=== PATIENT | female | born 1985 | race American Indian/Alaskan Native ===

== ENCOUNTER 2017-02-04 12:37 | Outpatient (CLI) | payer MEDICAID ==
[2017-02-04 13:30] LABS: Hematocrit 34.4 % (30.3-42.9); Hemoglobin 11.1 gm/dl (10.1-14.3); Mean Corpuscular HGB Conc 32 % (30-34); Mean Corpuscular Volume 76 fl (79-97); Platelet Count 264 K/mm3 (140-440); Red Blood Count 4.55 M/mm3 (3.65-5.03); Red Cell Distribution Width 16.1 % (13.2-15.2)
[2017-02-04 13:33] LABS: Mean Corpuscular Hemoglobin 25 pg (28-32)
[2017-02-04 13:45] LABS: Bilirubin,Urine NEG (Negative); Blood,Urine NEG (Negative); Ketones,Urine NEG (Negative); Leukocyte Esterase,Urine NEG (Negative); Nitrite,Urine NEG (Negative); Protein,Urine <15 mg/dL mg/dL (Negative); Urobilinogen,Urine < 2.0 mg/dL (<2.0)
[2017-02-04 13:52] LABS: Alanine Aminotransferase 27 units/L (7-56); Lactate Dehydrogenase 423 units/L (91-180)
[2017-02-04 14:06] VITALS: BP 132/70
== END 2017-02-04 14:30 | disposition home or self-care (01) ==
LOC: TRG 12:37
PROVIDERS: ATTEND Obstetrics & Gynecology
DX: O47.03 False labor before 37 completed weeks of gestation, third trimester (principal); Z3A.35 35 weeks gestation of pregnancy
CPT/HCPCS: 36415; 59025; 81001; 82565; 83615; 84450; 84460; 84550; 85027

== ENCOUNTER 2017-02-18 09:26 | Inpatient (IN) | payer MEDICAID ==
[2017-02-18] MEDS ORDERED: REGLAN IV ONE (10:21)
[2017-02-18] MEDS ORDERED: PEPCID IV ONE ×2 (10:21→16:11)
[2017-02-18] MEDS ORDERED: BICITRA PO ONE ×2 (10:21→15:00)
--- NOTE | 2017-02-18 10:29 | History and Physical Report ---
<KARIRAYMUNDO Elba - Last Filed: 02/18/17 12:33> History of Present Illness Date of examination: 02/18/17 Date of admission: 02/18/17 09:26 Chief complaint: patient sent to [facility] for repeat c/s today from [facility] d/t uncontrolled GDM, fasting blood sugars high 200's consistently. Patient has been noncompliant with care during . History of present illness: Menstrual History Regularity: regular Menses every: 28 days Duration: 5 LMP reliability: month known LMP character: normal test type: urine test Date: 08/24/2016 BC at conception: barrier Planned ? yes EDC 03/09/17 Past History : 7 Term Births: 5 Living Children: 5 Para: 5 Prev : 4 Elect. Ab: 1 # 1 Delivery date: 2001 Delivery type: EAB # 2 Delivery date: 2005 Weeks Gestation: FT labor: no Delivery type: Delivery location: [facility] Infant Sex: Male weight: 8-3 # 3 Delivery date: 2006 Weeks Gestation: FT labor: no Delivery type: Anesthesia type: general Delivery location: [facility] Infant Sex: Female weight: 9-2 Comments: CPD; pt had an epidural but panicked and was given general # 4 Delivery date: 06/15/2011 Weeks Gestation: 39+2 Delivery type: Anesthesia type: spinal Delivery location: [facility] Sex: female weight: 6.81 Comments: previous c/s # 5 Delivery date: 2012 Weeks Gestation: term Delivery type: Anesthesia type: epidural Delivery location: [facility] [place] Sex: Female weight: 6 Comments: denies comp # 6 Delivery date: 2013 Weeks Gestation: term Delivery type: Anesthesia type: epidural Delivery location: [facility] Infant Sex: Female weight: 8 Risk Factors: Smoked Tobacco Use: Never smoker Smokeless Tobacco Use: Never Passive smoke exposure: no Drug use: no HIV high-risk behavior: low risk Caffeine use: 1 drinks per day Alcohol use: no Seatbelt use: preg-patent counsel % Dietary Counseling: pn yes Past Medical History: Reviewed history from 11/17/2010 and no changes required: Negative Past Medical History sti hx--CT, 2006 abd pap hx--2006, lgsil Past Surgical History: X4 Past Medical History 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 of genital herpes: no Partner hx. of genital herpes: no Rash, Viral, or Febrile illness since last LMP? no Varicella/Chicken Pox Status: Previous Disease TB Risk: no Genetic History Congenital Heart Defect: Mom: no Dad: no Serene Disease: Mom: no Dad: no Thalassemia Mom: no Dad: no Neural Tube Defect Mom: no Dad: no Down's Syndrome Mom: no Dad: no Diomedes-Sachs Mom: no Dad: no Sickle Cell Disease/Trait Mom: no Dad: no Hemophilia Mom: no Dad: no Muscular Dystrophy Mom: no Dad: no Cystic Fibrosis Mom: no Dad: no Gabriella Chorea Mom: no Dad: no Mental Retardation Mom: no Dad: no Fragile X Mom: no Dad: no Other Genetic/Chromosomal Disorder Mom: no Dad: no Child w/other defect Mom: no Dad: no Enviromental Exposures Xray Exposure: no Medication, drug, or alcohol use since LMP: no Chemical/Other Exposure: no Exposure to Cat Liter: no Hx of Parvovirus (Fifth Disease): no Occupational Exposure to Children: none Current Allergies (reviewed today): No known allergies Past History Past Medical History: other (see HPI) Past Surgical History: section (x4), other (see HPI) - Obstetrical History Expected Date of Delivery: 03/09/17 Actual Gestation: 37 Week(s) 2 Day(s) : 7 Para: 5 Hx # Term Pregnancies: 5 Number of Pregnancies: 0 Spontaneous Abortions: 0 Induced : 1 Number of Living Children: 5 Medications and Allergies Allergies Allergy/AdvReac Type Severity Reaction Status Date / Time No Known Allergies Allergy Verified 07/13/13 10:50 Home Medications Medication Instructions Recorded Confirmed Last Taken Type No Known Home Medications [No 02/18/17 02/18/17 Unknown History Reported Home Medications] Active Meds: Active Medications Citric Acid/Sodium Citrate (Bicitra) 30 ml PO ONCE ONE Stop: 02/18/17 10:22 Famotidine (Pepcid) 20 mg IV ONCE ONE Stop: 02/18/17 10:22 Cefazolin Sodium (Ancef/Sterile Water 2 Gm/20 Ml) 2 gm in 20 mls @ 80 mls/hr IV PREOP NR PRN Reason: Protocol Lactated Ringer's (Lactated Ringers) 1,000 mls @ 2,250 mls/hr IV PREOP WILLOW Stop: 02/19/17 11:27 Oxytocin/Sodium Chloride (Pitocin/Ns 20 Unit/1000ml Drip) 20 units in 1,000 mls @ 0 mls/hr IV TITR WILLOW PRN Reason: As Directed Metoclopramide HCl (Reglan) 10 mg IV ONCE ONE Stop: 02/18/17 10:22 Review of Systems All systems: negative - Physical Exam Breasts: Positive: normal Cardiovascular: Regular rate Lungs: Positive: Clear to auscultation, Normal air movement Abdomen: Positive: normal appearance, soft, normal bowel sounds Genitourinary (Female): Positive: normal external genitalia Vulva: both: normal Vagina: Positive: normal moisture Uterus: Positive: normal size, normal contour Anus/Rectum: Positive: normal perianal skin Extremities: Positive: normal Deep Tendon Reflex Grade: Normal +2 - Obstetrical FHR: category 1 Uterine Contraction Monitor Mode: External Uterine Contraction Pattern: Absent Uterine Tone Measurement Phase: Resting Results Result Diagrams: 02/18/17 11:32 All other labs normal. Assessment and Plan 32y/o @ 37+2 weeks, Seen by Dr. Zhu at [facility]'s office this morning. Fast blood sugar noted to be in the high 200's. Dr. Zhu recommends delivery today. Prev c/s x4, desires Sterilization. Admission pre-op orders in EMR. - Patient Problems (1) Noncompliance with treatment plan Current Visit: Yes Status: Acute (2) Previous section Current Visit: Yes Status: Acute (3) Gestational diabetes mellitus (GDM) Current Visit: Yes Status: Acute QualifierTitle: Gestational diabetes mellitus control: unspecified Trimester: third trimester Qualified Code(s): O24.419 - Gestational diabetes mellitus in , unspecified control (4) 37 weeks gestation of Current Visit: Yes Status: Acute (5) Polyhydramnios, third trimester, fetus 1 Current Visit: Yes Status: Acute (6) Sterilization Current Visit: Yes Status: Acute Plan to address problem: previously signed consent on chart, patient states she desires tubal ligation during c/s today (7) GBS (group B Streptococcus carrier), +RV culture, currently Current Visit: Yes Status: Acute <LIZANDRO CUNHA - Last Filed: 02/18/17 17:07> History of Present Illness Date of admission: 02/18/17 09:26 Medications and Allergies Active Meds: Active Medications Cefazolin Sodium (Ancef/Sterile Water 2 Gm/20 Ml) 2 gm in 20 mls @ 80 mls/hr IV PREOP NR PRN Reason: Protocol Stop: 02/18/17 23:59 Lactated Ringer's (Lactated Ringers) 1,000 mls @ 2,250 mls/hr IV PREOP WILLOW Stop: 02/19/17 11:27 Last Admin: 02/18/17 16:38 Dose: 2,250 mls/hr Oxytocin/Sodium Chloride (Pitocin/Ns 20 Unit/1000ml Drip) 20 units in 1,000 mls @ 0 mls/hr IV TITR WILLOW PRN Reason: As Directed Influenza Virus Vaccine Quadrival (Fluarix Quad [id number](36 Mos+) 0.5 ml IM .ONCE ONE Stop: 02/19/17 12:01 Results Result Diagrams: 02/18/17 11:32 Abnormal lab results 02/18/17 Range/Units 11:32 WBC 11.7 H (4.5-11.0) K/mm3 MCV 76 L (79-97) fl MCH 25 L (28-32) pg RDW 16.1 H (13.2-15.2) % [place] % (Auto) 8.2 H (0.0-7.3) % [place] # 1.0 H (0.0-0.8) K/mm3 Seg Neutrophils % 72.9 H (40.0-70.0) % Seg Neutrophils # 8.5 H (1.8-7.7) K/mm3 All other labs normal.
[2017-02-18] MEDS ORDERED: ANCEF/STERILE WATER 2 GM/20 ML 2 GM/20 ML SYRINGE IV NR (11:00)
[2017-02-18] MEDS ORDERED: PITOCin/NS 20 UNIT/1000ML DRIP 20 UNITS/1,000 ML BAG IV SCH ×2 (11:00→22:48)
[2017-02-18 11:53] LABS: Basophils % (Auto) 0.4 % (0.0-1.8); Eosinophils % (Auto) 1.2 % (0.0-4.3); Hematocrit 34.1 % (30.3-42.9); Hemoglobin 11.1 gm/dl (10.1-14.3); Mean Corpuscular HGB Conc 33 % (30-34); Mean Corpuscular Volume 76 fl (79-97); Platelet Count 225 K/mm3 (140-440); Red Blood Count 4.49 M/mm3 (3.65-5.03); Red Cell Distribution Width 16.1 % (13.2-15.2); White Blood Count 11.7 K/mm3 (4.5-11.0)
[2017-02-18 12:04] LABS: Mean Corpuscular Hemoglobin 25 pg (28-32)
[2017-02-18] MEDS: LACTATED RINGERS 1,000 ML IV SCH ×3 (16:10→19:30)
[2017-02-18] MEDS ORDERED: REGLAN ONE (16:11)
[2017-02-18] MEDS ORDERED: MORPHINE ONE (17:43)
[2017-02-18] MEDS ORDERED: NACL 0.9% IR ONE (18:07)
[2017-02-18] MEDS ORDERED: WATER FOR IRRIG STERILE IR ONE (18:07)
[2017-02-18] MEDS ORDERED: ZOFRAN ONE (18:17)
[2017-02-18] MEDS ORDERED: NEO SYNEPHRINE/NS Syringe(OR USE) IV ONE (18:17)
[2017-02-18] MEDS ORDERED: VERSED ONE (18:26)
--- NOTE | 2017-02-18 18:52 | Operative Report ---
Operative Report Operative Report: Date of procedure: 02/18/2017 Pre-operative diagnosis: Intrauterine at 37 weeks with previous section, uncontrolled diabetes, noncompliant with visits and desires permanent sterilization Post-operative diagnosis: Same Procedure name(s): Repeat low transverse section with bilateral tubal ligation modified Bashir type Surgeon: Tank Campbell MD Pulp Cooker: VITALIY Anesthesia: Spinal EBL: 1000 mL Complications: None Findings: Patient with adhesions between the anterior uterine wall and rectus muscles had normal-appearing uterus and normal-appearing tubes and ovaries bilaterally. Female weighing 6 lbs. 14 oz. Apgars 8 at 1 minute and 8 at 5 minutes Specimen(s): Portion of the right and left fallopian tubes Procedure: The patient was brought to the operating room. A spinal was placed without any complications. She was then placed in left lateral tilt. Prepped and draped in the usual sterile manner. After testing for adequate anesthesia level, a Pfannenstiel incision was made through her previous scar. This incision was taken down to the fascia. The fascia was then nicked in the midline. This incision was extended out laterally with Ramírez scissors. The fascia was then sharply and bluntly from the underlying rectus muscles. The rectus muscles were bluntly and sharply . The peritoneum was then entered with the paper cone machine operator's fingers. The adhesions were taken down both sharply and bluntly. This incision was spread vertically with care not to damage the bladder below. The bladder flap was then formed sharply and bluntly with Metzenbaum scissors. The Nikolai self-retaining tractor was then placed without any difficulty. A transverse incision was made in lower uterine segment. This incision was extended laterally with the operators fingers. The amniotic sac was then entered bluntly with the paper cone machine operator's fingers. The was delivered from the vertex position. Bulb suction on the mother's abdomen. Cord was double clamped and cut. The was then passed to the nursery personnel who were in attendance. The above scores were given by the nursery personnel. The placenta was then bluntly removed. The uterus was then externalized and wiped clean the remaining products. The uterine incision was closed in layers. The first incision was closed in a locking manner using 0 Vicryl. This was followed by imbricating stitch also with 0 Vicryl. Attention was then switched to the patient's fallopian tubes. Each fallopian tube was identified by its fimbriated end. A portion of each tube was grabbed with the Gulshan clamp approximately 2-3 cm from the cornua. Each loop was double ligated with 0 chromic suture. The loop were cut with Metzenbaum scissors. Each stump was found to be hemostatic and cauterized with the Bovie. Attention was then switched back to the uterine closure. This closure was hemostatic. The bladder flap was copiously irrigated and found to be hemostatic. The pelvis was copiously irrigated and found to be hemostatic. The uterus was then placed back to the patient's abdomen. The tubal stumps were inspected and found to be hemostatic The retractors were removed. The rectus muscles were inspected and found to be hemostatic. The fascia was then closed in a running manner using 0 Vicryl. This incision was hemostatic irrigation Bovie. The skin was reapproximated with 4-0 Vicryl subcuticularly. The patient tolerated procedure well. Her urine was clear. The was admitted to the [facility]. The patient was accompanied to recovery room in good condition. Instrument count correct 3.
[2017-02-18] MEDS ORDERED: BENADRYL IV PRN (19:10)
[2017-02-18] MEDS ORDERED: NARCAN 0.4 MG/1 ML IV PRN ×2 (19:10→22:48)
--- NOTE | 2017-02-18 19:10 | Post Anesthesia Evaluation ---
- Post Anesthesia Evaluation Patient Participated: Yes Airway Patent: Yes Stable Respiratory Function: Yes Nausea/Vomiting: No Temp > 96.8F: Yes Pain Manageable: Yes Adequeate Hydration: Yes Anesthesia Complications: No Block Receding Appropriately: Yes Patient on Ventilator: No
--- NOTE | 2017-02-18 19:10 | Anesthesia Consultation ---
Anesthesia Consult and Med Hx Date of service: 02/18/17 - Airway Anesthetic Teeth Evaluation: Good ROM Head & Neck: Adequate Mental/Hyoid Distance: Adequate Mallampati Class: Class II Intubation Access Assessment: Probably Good - Pulmonary Exam CTA: Yes - Cardiac Exam Cardiac Exam: RRR - Pre-Operative Health Status ASA Pre-Surgery Classification: ASA3 Proposed Anesthetic Plan: Epidural, Spinal - Pulmonary Hx Asthma: No COPD: No Hx Pneumonia: No - Cardiovascular System Hx Hypertension: No - Central Nervous System Hx Seizures: No Hx Psychiatric Problems: No - Endocrine Hx Renal Disease: No Hx End Stage Renal Disease: No Hx Non-Insulin Dependent Diabetes: Yes (gestational) Hx Hypothyroidism: No Hx Hyperthyroidism: No - Hematic Hx Anemia: No Hx Sickle Cell Disease: No - Other Systems Hx Alcohol Use: No Hx Obesity: Yes (morbid, BMI > 40)
--- NOTE | 2017-02-18 19:10 | Anesthesia Day of Surgery ---
Anesthesia Day of Surgery - Day of Surgery Patient Examined: Yes Patient H&P Reviewed: Yes Patient is NPO: Yes
[2017-02-18] MEDS ORDERED: MORPHINE IV PRN ×2 (19:11)
[2017-02-18] MEDS ORDERED: TORADOL IV PRN ×2 (19:11→22:48)
[2017-02-18] MEDS ORDERED: SODIUM CHLORIDE FLUSH SYRINGE 10 ML IV NR (20:00)
[2017-02-18] MEDS: ZOFRAN IV PRN (20:02)
[2017-02-18] MEDS ORDERED: NACL 0.9% 1000 ML 1,000 ML IV ONE (22:48)
[2017-02-18] MEDS ORDERED: MILK OF MAGNESIA PO PRN (22:48)
[2017-02-18] MEDS ORDERED: ANCEF/NS 1 GM/50 ML 1 GM/50 ML BAG IV SCH (22:48)
[2017-02-18] MEDS ORDERED: SODIUM CHLORIDE FLUSH SYRINGE 10 ML IV PRN (22:48)
[2017-02-18] MEDS ORDERED: NORCO 5/325 PO PRN (22:48)
[2017-02-18] MEDS ORDERED: LANSINOH TP PRN (22:48)
[2017-02-18] MEDS ORDERED: TUCKS PAD TP PRN (22:48)
[2017-02-19] MEDS: ceFAZolin 1 GM in NACL 0.9% 20 ML IV SCH ×2 (01:13→18:39)
[2017-02-19] MEDS ORDERED: LACTATED RINGERS 1,000 ML IV SCH (03:00)
[2017-02-19] MEDS: ZOFRAN IV PRN (03:46)
[2017-02-19 08:14] LABS: Hematocrit 30.3 % (30.3-42.9)
[2017-02-19] MEDS ORDERED: ceFAZolin 1 GM in NACL 0.9% 20 ML IV ONE (09:45)
--- NOTE | 2017-02-19 09:52 | Query- General ---
Jorge Miguel esme Date: 02/19/17 Help Desk Analyst/CDS:____Rohit Phone#:__[phone] Exercise your independent professional judgment when responding to this query. Questions asked do not imply a particular answer is desired or expected. We greatly appreciate your clarification on this issue. Clinical Documentation States: 32 year old female was admitted on 02/18/17 The H&P (Dr. Campbell) states " patient sent to [facility] for repeat c/s today from [facility] d/t uncontrolled GDM, fasting blood sugars high 200's consistently. Patient has been noncompliant with care during . " The Surgery operative note states " Actual procedures p repeat with BTL " Clinical Findings Show (include reference to source document): BMI: 43 Given the above clinical scenario can you please provide an appropriate diagnosis based on your knowledge of the patient: PHYSICIAN RESPONSE: [ ] Obesity [ x ] Morbid obesity [ ] Other (Please specify) [ ] Clinically undeterminable Present on Admission: [ x] Yes (Y) [ ] Clinically undeterminable (W) [ ]No(N) Please also document response in your Progress Notes and/or Discharge Summary and indicate if the condition was present on admission. MTDD
[2017-02-19] MEDS ORDERED: ANCEF/NS 1 GM/50 ML 1 GM/50 ML BAG IV ONE (10:00)
--- NOTE | 2017-02-19 11:07 | Progress Note ---
Assessment and Plan - Patient Problems (1) delivery delivered Current Visit: Yes Status: Acute Plan to address problem: Postoperative day #1. Patient without fever. We'll ambulate in halls. We will continue routine postoperative care. Patient's postoperative hematocrit 30 %. We'll continue routine post care (2) Gestational diabetes mellitus (GDM) Current Visit: Yes Status: Acute Qualifiers: Gestational diabetes mellitus control: unspecified Trimester: third trimester Qualified Code(s): O24.419 - Gestational diabetes mellitus in , unspecified control Plan to address problem: Patient down with continued elevated blood sugars most likely consistent with gestational diabetes will obtain consult (3) Diabetes Current Visit: No Status: Acute Qualifiers: Diabetes mellitus type: other specified (including CARRIE) Plan to address problem: Patient was noncompliant with her glucose screening during the did have a hemoglobin globe an A1c of 7.1 will obtain a hospitalist consult treatment of her diabetes and arrangement for after discharge care Subjective - Subjective Date of service: 02/19/17 Patient reports: appetite normal, voiding normally, pain well controlled, flatus , ambulating normally Mcdonald: doing well Objective - Vital Signs Latest vital signs: Vital Signs Temp Pulse Resp BP Pulse Ox 02/19/17 04:55 98.3 F 20 111/58 02/18/17 23:43 97.8 F 20 127/68 02/18/17 23:07 18 02/18/17 22:37 18 02/18/17 21:08 98.4 F 20 121/64 02/18/17 20:10 82 13 118/67 02/18/17 20:00 81 19 121/68 100 02/18/17 19:51 117 H 22 145/67 100 02/18/17 19:40 81 23 117/70 99 02/18/17 19:30 77 24 124/77 100 02/18/17 19:20 89 20 123/94 99 02/18/17 19:10 76 16 120/72 100 02/18/17 19:01 81 22 100 02/18/17 19:00 97.7 F Intake and Output 02/18/17 02/19/17 02/19/17 22:59 06:59 14:59 Intake Total 2400 270 Output Total 150 300 100 Balance 2250 -30 -100 Intake: IV 2400 Lactated Ringers 1,000 ml 2000 @ 2250 mls/hr IV PREOP [facility] Rx#:[id number] Oral 150 Intake, Free Water 120 Output: Urine 150 300 100 Indwelling Catheter 300 100 Other: Total, Intake Amount 50 Total, Output Amount 300 100 Estimated Blood Loss 1,000 - Exam Breasts: Present: deferred Cardiovascular: Present: Regular rate Lungs: Present: Normal air movement Abdomen: Present: normal appearance, tenderness (appropriately), normal bowel sounds Uterus: Present: firm, fundal height at umbilicus Extremities: Present: edema Incision: Present: dry, dressed - Labs Labs: Abnormal lab results 02/18/17 02/18/17 02/18/17 Range/Units 11:32 17:22 23:37 WBC 11.7 H (4.5-11.0) K/mm3 Hgb (10.1-14.3) gm/dl MCV 76 L (79-97) fl MCH 25 L (28-32) pg RDW 16.1 H (13.2-15.2) % Gage % (Auto) 8.2 H (0.0-7.3) % Gage # 1.0 H (0.0-0.8) K/mm3 Seg Neutrophils % 72.9 H (40.0-70.0) % Seg Neutrophils # 8.5 H (1.8-7.7) K/mm3 POC Glucose 148 H 217 H (70-105) 02/19/17 02/19/17 Range/Units 07:29 08:21 WBC (4.5-11.0) K/mm3 Hgb 10.0 L (10.1-14.3) gm/dl MCV (79-97) fl MCH (28-32) pg RDW (13.2-15.2) % Gage % (Auto) (0.0-7.3) % Gage # (0.0-0.8) K/mm3 Seg Neutrophils % (40.0-70.0) % Seg Neutrophils # (1.8-7.7) K/mm3 POC Glucose 195 H (70-105)
--- NOTE | 2017-02-19 11:58 | History and Physical Report ---
History of Present Illness Date of admission: 02/18/17 09:26 Chief complaint: My blood sugar is high History of present illness: 32 Yo Female with Morbid Obesity and Gestational diabetes. Consult placed for elevated random blood glucose. Pt seen and evaluated. Pt denies fever, chills, CP, Palpitations, Flank pain, polydipsia, polyuria, polyphagia, unintentional weight loss, nausea or vomiting. Pt resting comfortable, and states that she plans to breastfeed her child. Past History Past Medical History: diabetes, other (morbid obesity) Past Surgical History: Social history: single. denies: smoking, alcohol abuse, prescription drug abuse Family history: diabetes, hypertension Medications and Allergies Allergies Allergy/AdvReac Type Severity Reaction Status Date / Time No Known Allergies Allergy Verified 07/13/13 10:50 Home Medications Medication Instructions Recorded Confirmed Last Taken Type Ferrous Sulfate [Feosol 325 MG tab] 325 mg PO BID #60 tablet 02/18/17 Unknown Rx Ibuprofen [Motrin 800 MG tab] 800 mg PO Q6H PRN #30 tablet 02/18/17 Unknown Rx oxyCODONE /ACETAMINOPHEN [Percocet 1 - 2 tab PO Q4H PRN #30 tablet 02/18/17 Unknown Rx 5/325 mg] Active Meds: Active Medications Acetaminophen/Hydrocodone Bitart (Jermyn 5/325) 1 each PO Q4H PRN PRN Reason: Pain, Moderate (4-6) Diphenhydramine HCl (Benadryl) 25 mg IV Q6H PRN PRN Reason: Itching Ferrous Sulfate (Feosol) 325 mg PO QDAY WILLOW Oxytocin/Sodium Chloride (Pitocin/Ns 20 Unit/1000ml Drip) 20 units in 1,000 mls @ 250 mls/hr IV DIRECT WILLOW Lactated Ringer's (Lactated Ringers) 1,000 mls @ 125 mls/hr IV DIRECT WILLOW Last Admin: 02/19/17 05:36 Dose: 125 mls/hr Ibuprofen (Motrin) 800 mg PO Q6H PRN PRN Reason: Pain, Mild (1-3) Insulin Human Regular (Novolin R) 0 units SUB-Q ACHS WILLOW PRN Reason: Protocol Last Admin: 02/19/17 00:03 Dose: 4 units Ketorolac Tromethamine (Toradol) 30 mg IV Q6H PRN PRN Reason: Pain, Moderate (4-6) Stop: 02/23/17 19:10 Last Admin: 02/18/17 19:29 Dose: 30 mg Magnesium Hydroxide (Milk Of Magnesia) 30 ml PO QHS PRN PRN Reason: Constip Unrelieved By Senna Morphine Sulfate (Morphine) 2 mg IV Q4H PRN PRN Reason: Pain, Moderate (4-6) Last Admin: 02/18/17 22:37 Dose: 2 mg Morphine Sulfate (Morphine) 4 mg IV Q4H PRN PRN Reason: Pain , Severe (7-10) Last Admin: 02/18/17 19:29 Dose: 4 mg Multi-Ingredient Ointment (Lansinoh) 1 applic TP PRN PRN PRN Reason: dryness/cracking Multivitamins/Iron/Calcium ( Vitamin) 1 each PO QDAY WILLOW Naloxone HCl (Narcan 0.4 Mg/1 Ml) 0.2 mg IV Q2MIN PRN PRN Reason: Res Rate </= 8 or 02 SAT < 92% Naloxone HCl (Narcan 0.4 Mg/1 Ml) 0.1 mg IV Q2MIN PRN PRN Reason: Res Rate </= 8 or 02 SAT < 92% Ondansetron HCl (Zofran) 4 mg IV Q8H PRN PRN Reason: Nausea And Vomiting Last Admin: 02/19/17 03:46 Dose: 4 mg Sodium Chloride (Sodium Chloride Flush Syringe 10 Ml) 10 ml IV PRN PRN PRN Reason: LINE FLUSH Witch Selina/Glycerin (Tucks Pad) 1 each TP PRN PRN PRN Reason: Hemorrhoids/cleansing/soothing Review of Systems Constitutional: no weight loss, no weight gain, no fever, no chills Ears, nose, mouth and throat: no ear pain, no ear discharge, no tinnitis, no decreased hearing, no nose pain Breasts: no change in shape, no swelling, no mass Cardiovascular: no chest pain, no orthopnea, no palpitations, no rapid/ irregular heart beat, no edema Respiratory: no cough, no cough with sputum, no excessive sputum, no hemoptysis , no shortness of breath Gastrointestinal: no abdominal pain, no nausea, no vomiting, no diarrhea, no constipation Genitourinary Female: no dysmenorrhea, no pelvic pain, no flank pain, no menorrhagia, no dysuria, no urinary frequency, no urgency Rectal: no pain, no incontinence, no bleeding Musculoskeletal: no neck stiffness, no neck pain, no shooting arm pain, no arm numbness/tingling, no low back pain Integumentary: no rash, no pruritis, no redness, no sores, no wounds Neurological: no head injury, no transient paralysis, no paralysis, no weakness , no parathesias Psychiatric: no anxiety, no memory loss, no change in sleep habits, no sleep disturbances, no insomnia, no hypersomnia Endocrine: no cold intolerance, no heat intolerance, no polyphagia, no excessive thirst, no polydipsia, no polyuria, no nocturia, no excessive sweating Hematologic/Lymphatic: no easy bruising, no easy bleeding Allergic/Immunologic: no urticaria, no allergic rhinitis, no wheezing Exam - Constitutional Vitals: Temp Pulse Resp BP Pulse Ox 98.3 F 82 18 93/51 100 02/19/17 04:55 02/18/17 20:10 02/19/17 09:50 02/19/17 09:50 02/18/17 20:00 General appearance: Present: obese - EENT Eyes: Present: PERRL ENT: hearing intact, clear oral mucosa - Neck Neck: Present: supple, normal ROM - Respiratory Respiratory effort: normal Respiratory: bilateral: CTA - Cardiovascular Heart Sounds: Present: S1 & S2. Absent: rub, click - Extremities Extremities: pulses symmetrical, No edema Peripheral Pulses: within normal limits - Abdominal General gastrointestinal: Present: soft, non-tender, non-distended, normal bowel sounds Female genitourinary: Present: normal - Integumentary Integumentary: Present: clear, warm, dry - Musculoskeletal Musculoskeletal: gait normal, strength equal bilaterally - Psychiatric Psychiatric: appropriate mood/affect, intact judgment & insight - Neurologic Neurologic: CNII-XII intact, moves all extremities Results - Labs CBC & Chem 7: 02/19/17 07:29 Labs: Abnormal lab results 02/18/17 02/18/17 02/18/17 Range/Units 11:32 17:22 23:37 WBC 11.7 H (4.5-11.0) K/mm3 Hgb (10.1-14.3) gm/dl MCV 76 L (79-97) fl MCH 25 L (28-32) pg RDW 16.1 H (13.2-15.2) % POC Glucose 148 H 217 H (70-105) 02/19/17 02/19/17 Range/Units 07:29 08:21 WBC (4.5-11.0) K/mm3 Hgb 10.0 L (10.1-14.3) gm/dl MCV (79-97) fl MCH (28-32) pg RDW (13.2-15.2) % POC Glucose 195 H (70-105) Assessment and Plan - Patient Problems (1) Gestational diabetes Current Visit: Yes Status: Acute Plan to address problem: Patient is borderline, but has random serum glucose above 200. Pt counseled regarding Low carbohydrate diet and carbohydrate counting, increased physical activity, continue with because it will lower glucose level, F/U with PCP with fasting serum glucose. (2) Morbid obesity Current Visit: Yes Status: Acute Plan to address problem: Pt counseled regarding increased physical activity, balanced low carbohydrate diet,
[2017-02-19] MEDS ORDERED: Fluarix Quad 2017-2018(36 MOS+ IM ONE (12:00)
[2017-02-19] MEDS: MOTRIN PO PRN ×2 (12:43→20:27)
[2017-02-19] MEDS: PRENATAL VITAMIN PO SCH (12:48)
[2017-02-19] MEDS: FEOSOL PO SCH (12:48)
--- NOTE | 2017-02-20 08:18 | Discharge Summary ---
Providers - Providers Date of Admission: 02/18/17 09:26 Date of discharge: 02/20/17 Attending physician: LIZANDRO CUNHA 02/18/17 22:48 Consult to [employer] [CONS] Routine Reason For Exam: 02/19/17 10:58 Consult to Physician [CONS] Routine Consulting Provider: JALIL RICHARDS Reason For Exam: evalauate for diabetes Place consult to:: Dr Richards Notified:: yes Phone number called:: [phone] Was contact made?: Yes If yes, spoke with:: Dr Richards Time called:: 11:01 Primary care physician: LIZANDRO CUNHA Hospitalization Reason for admission: other (intrauterine at 37 weeks with poorly controlled diabetes) Delivery: Procedure: section, bilateral tubal ligation Incision: normal, dry, intact complications: none Discharge diagnosis: IUP at term delivered, other (fluid controlled gestational diabetes, noncompliant with visits) [place] baby: female Hospital course: Patient was admitted and underwent above procedure without complications. Her post operative course was benign she was afebrile throughout. Patient postoperative day 1 hematocrit was in an acceptable range. Patient had no orthostatic symptoms. Patient was tolerating regular diet and voiding without difficulty at time of discharge. Patient incision was healing well without evidence of infection. Patient did have a hospitalist consult due to her elevated blood sugars. Recommendations were patient follow up with her primary care doctor fasting glucose. Patient also given diet information and precautions. Patient desires discharge today Condition at discharge: Good Disposition: DC-[id number] TO HOME OR SELFCARE - Discharge Diagnoses (1) delivery delivered Status: Chronic (2) Gestational diabetes mellitus (GDM) Status: Acute Qualifiers: Gestational diabetes mellitus control: unspecified Trimester: third trimester Qualified Code(s): O24.419 - Gestational diabetes mellitus in , unspecified control (3) Diabetes Status: Acute Qualifiers: Diabetes mellitus type: other specified (including CARRIE) Plan - Discharge Medications Prescriptions: Ferrous Sulfate [Feosol 325 MG tab] 325 mg PO BID #60 tablet Ibuprofen [Motrin 800 MG tab] 800 mg PO Q6H PRN #30 tablet PRN Reason: Pain oxyCODONE /ACETAMINOPHEN [Percocet 5/325 mg] 1 - 2 tab PO Q4H PRN #30 tablet PRN Reason: Pain, Moderate - Provider Discharge Summary Activity: routine, no sex for 6 weeks, no heavy lifting 4 weeks, no strenuous exercise Diet: other (ADA diet) Instructions: routine Additional instructions: [] Smoking cessation referral if applicable(refer to patient education folder for contact #) [] Refer to [facility] Booklet Call your doctor immediately for: * Fever > 100.5 * Heavy vaginal bleeding ( >1 pad per hour) * Severe persistent headache * Shortness of breath * Reddened, hot, painful area to leg or breast * Drainage or odor from incision. * Keep incision clean and dry at all times and follow doctor's instructions regarding bathing/showering Patient to keep scheduled postoperative appointment on February 25. - Follow up plan Follow up: LIZANDRO CUNHA MD [Primary Care Provider] - 7 Days
[2017-02-20] MEDS: FEOSOL PO SCH (09:24)
[2017-02-20] MEDS: MOTRIN PO PRN (09:25)
[2017-02-20] MEDS: PRENATAL VITAMIN PO SCH (09:26)
[2017-02-20] MEDS ORDERED: Fluarix Quad 2017-2018(36 MOS+ IM ONE (13:00)
[2017-02-20 13:21] VITALS: BP 113/77
== END 2017-02-20 12:10 | disposition home or self-care (01) | DRG 765 ==
LOC: APU 09:26 → OB 22:25
PROVIDERS: ADMIT Obstetrics & Gynecology; ATTEND Obstetrics & Gynecology
PROC: 10D00Z1 Extraction of Products of Conception, Low, Open Approach (ICD-10-PCS; principal; 2017-02-18)
PROC: 0UB70ZZ Excision of Bilateral Fallopian Tubes, Open Approach (ICD-10-PCS; 2017-02-18)
PROC: 3E0234Z Introduction of Serum, Toxoid and Vaccine into Muscle, Percutaneous Approach (ICD-10-PCS; 2017-02-20)
DX: O34.219 Maternal care for unspecified type scar from previous cesarean delivery (principal); Z68.41 Body mass index [BMI] 40.0-44.9, adult; E66.01 Morbid (severe) obesity due to excess calories; O24.429 Gestational diabetes mellitus in childbirth, unspecified control; O40.3XX0 Polyhydramnios, third trimester, not applicable or unspecified; O99.824 Streptococcus B carrier state complicating childbirth; O99.214 Obesity complicating childbirth; Z30.2 Encounter for sterilization; Z79.4 Long term (current) use of insulin; Z82.49 Family history of ischemic heart disease and other diseases of the circulatory system; Z91.19 Patient's noncompliance with other medical treatment and regimen; Z71.3 Dietary counseling and surveillance; Z3A.37 37 weeks gestation of pregnancy; Z37.0 Single live birth; Z23 Encounter for immunization; Z83.3 Family history of diabetes mellitus
CPT/HCPCS: 36415; 82962; 85014; 85018; 85025; 86592; 86850; 86900; 86901; 88302; 90686; J0690; J1200; J1815; J1885; J2250; J2270; J2370; J2405; J2590; J2765; J7120